=== PATIENT | female | born 1985 | race Caucasian/White ===

== ENCOUNTER 2020-10-25 23:11 | Emergency (ER) | payer BC ==
[2020-10-25] MEDS ORDERED: ONDANSETRON 4 MG/2 ML VIAL IVP STA (23:23)
[2020-10-25] MEDS ORDERED: ACETAMINOPHEN TAB 500 MG TAB PO STA (23:23)
[2020-10-25] MEDS ORDERED: HYDROmorphone 0.5 MG/0.5 ML SYRINGE IVP STA (23:23)
[2020-10-25] MEDS ORDERED: KETOROLAC 15 MG/ML 1 ML VIAL IVP STA (23:23)
[2020-10-25] MEDS ORDERED: SODIUM CHLORIDE 0.9% 1,000 ML IV STA (23:23)
--- NOTE | 2020-10-25 23:29 | ED ---
Abdominal Pain HPI - General Chief Complaint: Abdominal Pain Stated Complaint: Abd Pain Time Seen by Provider: 10/25/20 23:18 Source: patient Mode of arrival: ambulatory Limitations: no limitations - History of Present Illness Initial Comments: 35 year-old female patient presents to the emergency department for evaluation of left flank pain that started around 1500 this afternoon. States that pain has been persistent since. Reports nausea without vomiting. Denies constipation or diarrhea. Denies any hematuria, dysuria, urinary urgency, or frequency. Denies any known fever but states she is chilled and feels like she is going to pass out. Denies abnormal vaginal discharge or concern for STD. States she is on her period and does not think she is . Has history of kidney stone, current symptoms feel similar. She has had appendectomy and lithotripsy in the past. No other abdominal surgeries. Patient denies any recent rash, cough, shortness of breath, chest pain, numbness, tingling, dizziness, weakness, headache, visual changes, or any other complaints. - Related Data Previous Rx's Medication Instructions Recorded HYDROcodone/APAP 7.5-325MG [[place] 1 each PO Q6HR PRN #30 tab 08/15/14 7.5-325] Naproxen [Naprosyn] 500 mg PO Q12HR #60 tab 08/15/14 Ondansetron Odt [Zofran Odt] 4 mg PO Q8HR PRN #30 tab 08/15/14 Tamsulosin HCl [Flomax] 0.4 mg PO DAILY #30 cap 08/15/14 Cephalexin [Keflex] 500 mg PO Q6H #56 cap 10/26/20 Fluconazole [Diflucan] 150 mg PO ONCE #2 tab 10/26/20 Ibuprofen [Motrin] 600 mg PO Q8HR PRN #30 tab 10/26/20 Allergies Allergy/AdvReac Type Severity Reaction Status Date / Time Sulfa (Sulfonamide Allergy Rash/Hives Verified 10/25/20 23:16 Antibiotics) Review of Systems ROS Statement: Those systems with pertinent positive or pertinent negative responses have been documented in the HPI. ROS Other: All systems not noted in ROS Statement are negative. Past Medical History Additional Past Medical History / Comment(s): KIDNEY STONES, History of Any Multi-Drug Resistant Organisms: None Reported Past Surgical History: Appendectomy Additional Past Surgical History / Comment(s): hx: kidney stones Past Psychological History: Anxiety Smoking Status: Current every day smoker Past Alcohol Use History: None Reported Past Drug Use History: Marijuana General Exam Limitations: no limitations General appearance: alert, in no apparent distress, other (Social well-devel oped, well-nourished adult female patient in no acute distress. Vital signs upon presentation temperature 100.3F oral, pulse 100, respirations 18, blood pressure 126/73, pulse ox 100% on room air.) Eye exam: Present: normal appearance, PERRL, EOMI. Absent: scleral icterus, conjunctival injection, periorbital swelling ENT exam: Present: normal exam, normal oropharynx, mucous membranes moist Respiratory exam: Present: normal lung sounds bilaterally. Absent: respiratory distress, wheezes, rales, rhonchi, stridor Cardiovascular Exam: Present: regular rate, normal rhythm, normal heart sounds. Absent: systolic murmur, diastolic murmur, rubs, gallop, clicks GI/Abdominal exam: Present: soft, tenderness (Left lateral), normal bowel sounds. Absent: distended, guarding, rebound, rigid Back exam: Present: normal inspection, CVA tenderness (L). Absent: CVA tenderness (R) Neurological exam: Present: alert, oriented X3, CN II-XII intact Psychiatric exam: Present: normal affect, normal mood Skin exam: Present: warm, dry, intact, normal color. Absent: rash Course Vital Signs 10/25/20 10/26/20 23:12 00:48 Temperature 100.3 F H 98.6 F Pulse Rate 100 71 Respiratory 18 20 Rate Blood Pressure 126/73 112/84 O2 Sat by Pulse 100 99 Oximetry Medical Decision Making - Medical Decision Making 35-year-old female patient presents to the emergency department today for evaluation of left flank pain that started earlier today. Physical examination did reveal left CVA tenderness. Mild left-sided abdominal tenderness. She does have a history of kidney stones. Labs reviewed and did reveal white blood cell count at 16.1, neutrophils 13.0. Kidney function is normal. Urinalysis did show trace ketones, moderate blood, positive nitrite, moderate leukocyte esterase, 19 red blood cells, 96 white blood cells, many bacteria, many mucus. CT abdomen pelvis shows no evidence for kidney stone or hydronephrosis. She did have elevated temperature upon arrival 100.3. She is not . She was given 1 g of Rocephin IV. She is not vomiting, has no comorbidities, no immunosupression. She'll be started on Keflex. We will give prescription for Diflucan. She is instructed to follow-up with her primary care physician for recheck in 1-2 days. Return parameters discussed in detail. She verbalizes understanding and agrees this plan. Case discussed with my attending Dr. Henriquez. - Lab Data Result diagrams: 10/25/20 23:39 10/25/20 23:39 Lab Results 10/25/20 10/25/20 10/25/20 Range/Units 23:39 23:39 23:39 WBC 16.1 H (3.8-10.6) k/uL RBC 4.39 (3.80-5.40) m/uL Hgb 14.2 (11.4-16.0) gm/dL Hct 40.2 (34.0-46.0) % MCV 91.7 (80.0-100.0) fL MCH 32.4 (25.0-35.0) pg MCHC 35.3 (31.0-37.0) g/dL RDW 12.0 (11.5-15.5) % Plt Count 238 (150-450) k/uL MPV 7.3 Neutrophils % 81 % Lymphocytes % 10 % Monocytes % 7 % Eosinophils % 1 % Basophils % 0 % Neutrophils # 13.0 H (1.3-7.7) k/uL Lymphocytes # 1.6 (1.0-4.8) k/uL Monocytes # 1.2 H (0-1.0) k/uL Eosinophils # 0.1 (0-0.7) k/uL Basophils # 0.0 (0-0.2) k/uL Sodium (137-145) mmol/L Potassium (3.5-5.1) mmol/L Chloride (98-107) mmol/L Carbon Dioxide (22-30) mmol/L Anion Gap mmol/L BUN (7-17) mg/dL Creatinine (0.52-1.04) mg/dL Est GFR (CKD-EPI)AfAm (>60 ml/min/1.73 sqM) Est GFR (CKD-EPI)NonAf (>60 ml/min/1.73 sqM) Glucose (74-99) mg/dL Plasma Lactic Acid Kaleb (0.7-2.0) mmol/L Calcium (8.4-10.2) mg/dL Total Bilirubin (0.2-1.3) mg/dL AST (14-36) U/L ALT (4-34) U/L Alkaline Phosphatase (38-126) U/L Total Protein (6.3-8.2) g/dL Albumin (3.5-5.0) g/dL Lipase (23-300) U/L Urine Color Yellow Urine Appearance Cloudy H (Clear) Urine pH 6.0 (5.0-8.0) Ur Specific [place] 1.029 (1.001-1.035) Urine Protein 1+ H (Negative) Urine Glucose (UA) Negative (Negative) Urine Ketones Trace H (Negative) Urine Blood Moderate H (Negative) Urine Nitrite Positive H (Negative) Urine Bilirubin Negative (Negative) Urine Urobilinogen <2.0 (<2.0) mg/dL Ur Leukocyte Esterase Moderate H (Negative) Urine RBC 19 H (0-5) /hpf Urine WBC 96 H (0-5) /hpf Ur Squamous Epith Cells 1 (0-4) /hpf Urine Bacteria Many H (None) /hpf Hyaline Casts 1 (0-2) /lpf Urine Mucus Many H (None) /hpf Urine HCG, Qual Not Detected (Not Detectd) 10/25/20 10/25/20 Range/Units 23:39 23:39 WBC (3.8-10.6) k/uL RBC (3.80-5.40) m/uL Hgb (11.4-16.0) gm/dL Hct (34.0-46.0) % MCV (80.0-100.0) fL MCH (25.0-35.0) pg MCHC (31.0-37.0) g/dL RDW (11.5-15.5) % Plt Count (150-450) k/uL MPV Neutrophils % % Lymphocytes % % Monocytes % % Eosinophils % % Basophils % % Neutrophils # (1.3-7.7) k/uL Lymphocytes # (1.0-4.8) k/uL Monocytes # (0-1.0) k/uL Eosinophils # (0-0.7) k/uL Basophils # (0-0.2) k/uL Sodium 136 L (137-145) mmol/L Potassium 3.7 (3.5-5.1) mmol/L Chloride 106 (98-107) mmol/L Carbon Dioxide 21 L (22-30) mmol/L Anion Gap 9 mmol/L BUN 14 (7-17) mg/dL Creatinine 0.77 (0.52-1.04) mg/dL Est GFR (CKD-EPI)AfAm >90 (>60 ml/min/1.73 sqM) Est GFR (CKD-EPI)NonAf >90 (>60 ml/min/1.73 sqM) Glucose 107 H (74-99) mg/dL Plasma Lactic Acid Kaleb 1.0 (0.7-2.0) mmol/L Calcium 9.3 (8.4-10.2) mg/dL Total Bilirubin 0.5 (0.2-1.3) mg/dL AST 17 (14-36) U/L ALT 9 (4-34) U/L Alkaline Phosphatase 48 (38-126) U/L Total Protein 6.4 (6.3-8.2) g/dL Albumin 4.2 (3.5-5.0) g/dL Lipase 38 (23-300) U/L Urine Color Urine Appearance (Clear) Urine pH (5.0-8.0) Ur Specific [place] (1.001-1.035) Urine Protein (Negative) Urine Glucose (UA) (Negative) Urine Ketones (Negative) Urine Blood (Negative) Urine Nitrite (Negative) Urine Bilirubin (Negative) Urine Urobilinogen (<2.0) mg/dL Ur Leukocyte Esterase (Negative) Urine RBC (0-5) /hpf Urine WBC (0-5) /hpf Ur Squamous Epith Cells (0-4) /hpf Urine Bacteria (None) /hpf Hyaline Casts (0-2) /lpf Urine Mucus (None) /hpf Urine HCG, Qual (Not Detectd) - Radiology Data Radiology results: report reviewed, image reviewed CT abdomen and pelvis without contrast was obtained. Report was reviewed in its entirety. Impression by Dr. Durand shows some low density free fluid in the pelvis. She is having persistent right ovary. Free fluid also present on the old exam. Multiple renal calcifications in the palpable could relate multiple renal calculi or medullary sponge kidney. No renal obstruction. Disposition Clinical Impression: Pyelonephritis Disposition: HOME SELF-CARE Condition: Good Instructions (If sedation given, give patient instructions): Kidney Infection (ED) Additional Instructions: Increase fluids. Complete antibiotic prescription in full. Follow-up with your primary care physician for recheck in 1-2 days. Return to the emergency department immediately for any new, worsening, or concerning symptoms Prescriptions: Fluconazole [Diflucan] 150 mg PO ONCE #2 tab Cephalexin [Keflex] 500 mg PO Q6H #56 cap Ibuprofen [Motrin] 600 mg PO Q8HR PRN #30 tab PRN Reason: Pain Is patient prescribed a controlled substance at d/c from ED?: No Referrals: Sandra Trejo MD [Primary Care Provider] - 1-2 days Time of Disposition: 01:02
[2020-10-26 00:08] LABS: Appearance,Urine Cloudy (Clear); Bacteria,Urine Many /hpf; Bilirubin,Urine Negative (Negative); Blood,Urine Moderate (Negative); Color,Urine Yellow; Glucose,Urine (UA) Negative (Negative); Hyaline Casts,Urine 1 /lpf (0-2); Ketones,Urine Trace (Negative); Leukocyte Esterase,Urine Moderate (Negative); Mucus,Urine Many /hpf; Nitrite,Urine Positive (Negative); Protein,Urine 1+ (Negative); RBC,Urine 19 /hpf (0-5); Specific Gravity,Urine 1.029 (1.001-1.035); Squamous Epithelial Cell,Urine 1 /hpf (0-4); Urobilinogen,Urine <2.0 mg/dL (<2.0); WBC,Urine 96 /hpf (0-5)
[2020-10-26 00:10] LABS: Basophils % (A) 0 %; Eosinophils # (A) 0.1 k/uL (0-0.7); Eosinophils % (A) 1 %; HCT 40.2 % (34.0-46.0); HGB 14.2 gm/dL (11.4-16.0); Lymphocytes # (A) 1.6 k/uL (1.0-4.8); Lymphocytes % (A) 10 %; MCH 32.4 pg (25.0-35.0); MCHC 35.3 g/dL (31.0-37.0); MCV 91.7 fL (80.0-100.0); Mean Platelet Volume 7.3; Monocytes # (A) 1.2 k/uL (0-1.0); Monocytes % (A) 7 %; Neutrophils % (A) 81 %; Platelet Count 238 k/uL (150-450); RBC 4.39 m/uL (3.80-5.40); WBC 16.1 k/uL (3.8-10.6)
[2020-10-26 00:14] LABS: ALT 9 U/L (4-34); AST 17 U/L (14-36); African American GFR (CKD) >90 (>60 ml/min/1.73 sqM); Albumin 4.2 g/dL (3.5-5.0); Alkaline Phosphatase 48 U/L (38-126); Anion Gap 9 mmol/L; Blood Urea Nitrogen 14 mg/dL (7-17); Calcium 9.3 mg/dL (8.4-10.2); Carbon Dioxide 21 mmol/L (22-30); Chloride 106 mmol/L (98-107); Glucose 107 mg/dL (74-99); Lipase 38 U/L (23-300); Non-African American GFR(CKD) >90 (>60 ml/min/1.73 sqM); Potassium 3.7 mmol/L (3.5-5.1); Sodium 136 mmol/L (137-145); Total Bilirubin 0.5 mg/dL (0.2-1.3); Total Protein 6.4 g/dL (6.3-8.2)
[2020-10-26] MEDS ORDERED: cefTRIAXone IN SWFI 1,000 MG/10 ML SYRINGE IVP STA (00:22)
[2020-10-26 00:51] VITALS: BP 112/84; PULSE 71; RESP 20; TEMP 98.6
--- NOTE | 2020-10-26 00:53 | CT ---
EXAMINATION TYPE: CT abdomen pelvis wo con DATE OF EXAM: 10/26/2020 COMPARISON: 07/08/2014 HISTORY: left flank pain CT DLP: 204.10 mGycm Automated exposure control for dose reduction was used. Images obtained from the diaphragm to the floor the pelvis with no contrast. The lung bases are clear. There is no pleural effusion. Heart size is normal. There is no pericardial effusion. Liver spleen stomach pancreas gallbladder appear normal. The bile ducts are not dilated. There is no adrenal mass. Kidneys have normal size. There is calcification in the renal papilla. This could relate to medullary sponge kidney. There is no hydronephrosis. Ureters are not dilated. There is no retroperitoneal adenopathy. There are clips apparently from appendectomy. Bladder distends smoo thly. Uterus appears normal. There is small amount of free fluid in the cul-de-sac. There is no evide nce of a pelvic mass. Lumbar vertebra have normal alignment. Disc spaces are normal. Posterior elements are intact. The bon y pelvis is intact. The hip joints are intact. There is no mesenteric edema. There is no ascites or free air. There is no bowel obstruction. IMPRESSION: There is some low density free fluid in the pelvis. There is 2 cm cyst on the right ovary. Free fluid also present on the old exam. Multiple renal calcifications in the papilla could relate to multiple renal calculi or and medullary sponge kidney. No renal obstruction.
== END 2020-10-26 01:19 | disposition home or self-care (01) ==
LOC: EC 23:11
DX: N12 Tubulo-interstitial nephritis, not specified as acute or chronic (principal); F17.200 Nicotine dependence, unspecified, uncomplicated; Z88.2 Allergy status to sulfonamides
CPT/HCPCS: 36415; 80053; 83605; 83690; 85025; 81001; 81025; 87040; 87086; 74176; 99284; 96374; 96375; 96361; J2405; J0696; J1885; J1170

== ENCOUNTER 2020-11-28 23:11 | Emergency (ER) | payer BC, OTHER ==
[2020-11-28 23:17] VITALS: BP 128/89; PULSE 73; RESP 19; TEMP 98.1
[2020-11-28] MEDS ORDERED: guaiFENesin-Coden 100-10MG/5ML 10 ML CUP PO STA (23:30)
--- NOTE | 2020-11-28 23:53 | ED ---
URI HPI - General Chief Complaint: Upper Respiratory Infection Stated Complaint: Cough, CORINNA Time Seen by Provider: 11/28/20 23:18 Source: patient Mode of arrival: ambulatory - History of Present Illness Initial Comments: 35-year-old female presents to emergency Department with a chief complaint of a cough. Patient reports yesterday she smoked moldy marijuana and ever since the n, she has developed a nonproductive cough. Reports the cough is worsening in the morning and night but slightly resolves throughout the day. Patient reports no associated URI-like symptoms except for a sore throat after having a coughing fits. She denies any associated chest pain or shortness of breath. She is a cigarette smoker. Denies any fevers or chills. - Related Data Previous Rx's Medication Instructions Recorded HYDROcodone/APAP 7.5-325MG [[place] 1 each PO Q6HR PRN #30 tab 08/15/14 7.5-325] Naproxen [Naprosyn] 500 mg PO Q12HR #60 tab 08/15/14 Ondansetron Odt [Zofran Odt] 4 mg PO Q8HR PRN #30 tab 08/15/14 Tamsulosin HCl [Flomax] 0.4 mg PO DAILY #30 cap 08/15/14 Cephalexin [Keflex] 500 mg PO Q6H #56 cap 10/26/20 Fluconazole [Diflucan] 150 mg PO ONCE #2 tab 10/26/20 Ibuprofen [Motrin] 600 mg PO Q8HR PRN #30 tab 10/26/20 Dextromethorphan Polistirex 30 mg PO BID #100 ml 11/28/20 [Delsym] Allergies Allergy/AdvReac Type Severity Reaction Status Date / Time Sulfa (Sulfonamide Allergy Rash/Hives Verified 11/28/20 23:17 Antibiotics) Review of Systems ROS Statement: Those systems with pertinent positive or pertinent negative responses have been documented in the HPI. ROS Other: All systems not noted in ROS Statement are negative. Past Medical History Additional Past Medical History / Comment(s): KIDNEY STONES, History of Any Multi-Drug Resistant Organisms: None Reported Past Surgical History: Appendectomy Additional Past Surgical History / Comment(s): hx: kidney stones Past Psychological History: Anxiety Smoking Status: Current every day smoker Past Alcohol Use History: None Reported Past Drug Use History: Marijuana General Exam Limitations: no limitations General appearance: alert, in no apparent distress Head exam: Present: atraumatic, normocephalic, normal inspection Eye exam: Present: normal appearance, PERRL, EOMI Pupils: Present: normal accommodation ENT exam: Present: normal exam, normal oropharynx, mucous membranes moist Neck exam: Present: normal inspection, full ROM. Absent: tenderness Respiratory exam: Present: normal lung sounds bilaterally. Absent: respiratory distress, wheezes, rales, rhonchi, stridor Cardiovascular Exam: Present: regular rate, normal rhythm, normal heart sounds GI/Abdominal exam: Present: soft. Absent: distended, tenderness Extremities exam: Present: normal inspection, full ROM, normal capillary refill. Absent: tenderness Back exam: Present: normal inspection, full ROM. Absent: tenderness, CVA tenderness (R), CVA tenderness (L) Neurological exam: Present: alert, oriented X3 Psychiatric exam: Present: normal affect, normal mood Skin exam: Present: warm, dry, intact, normal color Course Vital Signs 11/28/20 23:13 Temperature 98.1 F Pulse Rate 73 Respiratory 19 Rate Blood Pressure 128/89 O2 Sat by Pulse 100 Oximetry Medical Decision Making - Medical Decision Making 35-year-old female presents to emergency Department with a chief complaint of a cough. On physical examination, no signs of respiratory distress. Patient is able to complete sentences without any difficulty. Chest x-rays and a [place]. She was given Robitussin before meals here. She'll be discharged with Delsym prescription. Return parameters were thoroughly discussed with patient is understanding and agreeable. Case discussed with physician. Disposition Clinical Impression: Cough Disposition: HOME SELF-CARE Condition: Stable Instructions (If sedation given, give patient instructions): Acute Cough (ED) Additional Instructions: Please return to the Emergency Department if symptoms worsen or any other concerns. Prescriptions: Dextromethorphan Polistirex [Delsym] 30 mg PO BID #100 ml Is patient prescribed a controlled substance at d/c from ED?: No Referrals: Sandra Trejo MD [Primary Care Provider] - 1-2 days Time of Disposition: 23:59
--- NOTE | 2020-11-28 23:53 | XR ---
EXAMINATION TYPE: XR chest 2V DATE OF EXAM: 11/28/2020 COMPARISON: NONE HISTORY: Cough TECHNIQUE: 2 views FINDINGS: Heart and mediastinum are normal. Lungs are clear. Diaphragm is normal. Bony thorax is inta ct. IMPRESSION: Normal chest.
== END 2020-11-29 00:20 | disposition home or self-care (01) ==
LOC: EC 23:11
DX: R05 Cough (principal); R06.00 Dyspnea, unspecified; F17.210 Nicotine dependence, cigarettes, uncomplicated; Z88.2 Allergy status to sulfonamides
CPT/HCPCS: 71046; 99284

== ENCOUNTER 2021-05-13 14:25 | Emergency (ER) | payer BC, OTHER ==
[2021-05-13 15:02] VITALS: BP 128/78; PULSE 78; RESP 16; TEMP 97.9
--- NOTE | 2021-05-13 15:22 | XR ---
EXAMINATION TYPE: XR hand complete RT DATE OF EXAM: 05/13/2021 CLINICAL HISTORY: Pain after injury. TECHNIQUE: Frontal, lateral and oblique images of the right hand are obtained. COMPARISON: None. FINDINGS: There is acute comminuted slightly displaced fracture through the distal metadiaphysis fif th metacarpal. There is abnormal radial and palmar angulation of distal fracture fragments. Joint spa robby are maintained. Overlying soft tissue is unremarkable. IMPRESSION: Acute comminuted slightly displaced fracture distal metadiaphysis fifth metacarpal. (Boxe r type fracture).
[2021-05-13] MEDS ORDERED: ACET/COD 300 MG/30 MG STARTER PACK 6 TAB BTL PO STA (15:45)
[2021-05-13] MEDS ORDERED: DIPH,PERTUS(ACELL)TETVAC-LF 0.5 ML VIAL IM ONE (15:45)
--- NOTE | 2021-05-13 15:46 | ED ---
Upper Extremity HPI - General Chief Complaint: Extremity Injury, Upper Stated Complaint: R hand injury Time Seen by Provider: 05/13/21 15:25 Source: patient, old records reviewed Mode of arrival: ambulatory Limitations: no limitations - History of Present Illness Initial Comments: 35-year-old female presented to the emergency Department with chief complaint right hand pain. Patient states she punched a wall states that she has injury, pain to the right hand she is right-hand dominant no prior fractures. Patient has a small abrasion unsure when her last tetanus was. Patient offers no complaints. - Related Data Previous Rx's Medication Instructions Recorded HYDROcodone/APAP 7.5-325MG [[place] 1 each PO Q6HR PRN #30 tab 08/15/14 7.5-325] Naproxen [Naprosyn] 500 mg PO Q12HR #60 tab 08/15/14 Ondansetron Odt [Zofran Odt] 4 mg PO Q8HR PRN #30 tab 08/15/14 Tamsulosin HCl [Flomax] 0.4 mg PO DAILY #30 cap 08/15/14 Cephalexin [Keflex] 500 mg PO Q6H #56 cap 10/26/20 Fluconazole [Diflucan] 150 mg PO ONCE #2 tab 10/26/20 Ibuprofen [Motrin] 600 mg PO Q8HR PRN #30 tab 10/26/20 Dextromethorphan Polistirex 30 mg PO BID #100 ml 11/28/20 [Delsym] Allergies Allergy/AdvReac Type Severity Reaction Status Date / Time Sulfa (Sulfonamide Allergy Rash/Hives Verified 05/13/21 15:02 Antibiotics) Review of Systems ROS Statement: Those systems with pertinent positive or pertinent negative responses have been documented in the HPI. ROS Other: All systems not noted in ROS Statement are negative. Past Medical History Additional Past Medical History / Comment(s): KIDNEY STONES, History of Any Multi-Drug Resistant Organisms: None Reported Past Surgical History: Appendectomy Additional Past Surgical History / Comment(s): hx: kidney stones Past Psychological History: Anxiety Smoking Status: Current every day smoker Past Alcohol Use History: None Reported Past Drug Use History: Marijuana General Exam Limitations: no limitations General appearance: alert, in no apparent distress Head exam: Present: atraumatic, normocephalic, normal inspection Respiratory exam: Present: normal lung sounds bilaterally. Absent: respiratory distress, wheezes, rales, rhonchi, stridor Cardiovascular Exam: Present: regular rate, normal rhythm, normal heart sounds. Absent: systolic murmur, diastolic murmur, rubs, gallop, clicks Extremities exam: Present: other (Right hand there is small abrasion over the fifth metacarpal region. This is a very superficial wound, it was thoroughly cleaned patient does have moderate swelling, deformity to that area.) Skin exam: Present: warm, dry, intact, normal color. Absent: rash Course Vital Signs 05/13/21 14:59 Temperature 97.9 F Pulse Rate 78 Respiratory 16 Rate Blood Pressure 128/78 O2 Sat by Pulse 98 Oximetry Procedures - Orthopedic Splinting/Casting Injury #1 Side: right Upper Extremity Injury Location: short arm, hand Upper Extremity Immobilizer: ulnar gutter, synthetic pre-padded splint Medical Decision Making - Medical Decision Making Patient's and was cleaned there is a superficial abrasion tetanus is updated. Patient was in place in a splint will follow-up with orthopedics. Return parameters were discussed. Disposition Clinical Impression: Nondisplaced fracture of fifth right metatarsal bone Disposition: HOME SELF-CARE Condition: Stable Instructions (If sedation given, give patient instructions): Hand Fracture (ED) Additional Instructions: Please return to the Emergency Department if symptoms worsen or any other concerns. Is patient prescribed a controlled substance at d/c from ED?: No Referrals: Sandra Trejo MD [Primary Care Provider] - 1-2 days Raman Mercado MD [STAFF PHYSICIAN] - 1-2 days Time of Disposition: 15:46
== END 2021-05-13 16:33 | disposition home or self-care (01) ==
LOC: EC 14:25
DX: S62.396A Other fracture of fifth metacarpal bone, right hand, initial encounter for closed fracture (principal); F17.200 Nicotine dependence, unspecified, uncomplicated; Z23 Encounter for immunization; Z88.2 Allergy status to sulfonamides; W22.01XA Walked into wall, initial encounter
CPT/HCPCS: 29125; 90471; 90715; 99283

== ENCOUNTER → 2021-05-25 | Day surgery (SDC) | payer BC, OTHER ==
[2021-05-18 15:13] VITALS: BMI 17.2
--- NOTE | 2021-05-24 11:26 | HP ---
HISTORY AND PHYSICAL CHIEF COMPLAINT: Right hand pain. HISTORY OF PRESENT ILLNESS: This patient is a 35-year-old [id number] who presents with right hand pain after an injury on 05/13/2021. She punched a wall at home. Initially she was seen in the emergency room and was placed in a splint. She denies previous injury. PAST MEDICAL HISTORY: Significant for kidney stones. PAST SURGICAL HISTORY: Significant for appendectomy and tonsillectomy. CURRENT MEDICATIONS: None. ALLERGIES: SHE DENIES DRUG ALLERGIES. FAMILY HISTORY: Negative. SOCIAL HISTORY: Significant for current tobacco use. REVIEW OF SYSTEMS: Sixteen-point review of systems otherwise reviewed and is noncontributory. PHYSICAL EXAMINATION: On examination, the patient is approximately 5 feet 6 inches, 110 pounds of mesomorphic habitus. HEENT exam is nonfocal. Neck is supple. She is nontender about the right shoulder, elbow and wrist. On examination of her right hand, she is tender about the fifth metacarpal neck and distal shaft. Skin is intact. Moderate swelling is noted. There is limited range of motion. No rotational abnormalities noted. Her distal neurovascular exam appears intact in the digits. AP, lateral and oblique views of the right hand obtained in the office show a comminuted angulated fifth metacarpal distal shaft fracture. IMPRESSION: Right fifth metacarpal distal shaft/neck fracture with comminution and displacement. RECOMMENDATIONS: I talked to the patient at length regarding her condition and treatment options. At this point, with the initial degree of displacement, angulation and comminution, I recommended proceeding with attempted closed reduction and pinning. Risks and benefits were discussed at length in layman's terms. We will likely perform that as an outpatient procedure. MMODL / IJN: [id number] /
[~2021-05-25] MED LIST: DEXAMETHASONE SOD PHOSPHATE 4 MG/ML 1 ML VIAL IV ONE; HYDROmorphone 0.5 MG/0.5 ML SYRINGE IVP ONE; HYDROmorphone 0.5 MG/0.5 ML SYRINGE IVP PRN; KETAMINE 10 MG/ML 20 ML VIAL ONE; LACTATED RINGERS 1,000 ML IV SCH; LIDOCAINE 1% (10MG/ML) FOR IV START INTRADERMA PRN; LIDOCAINE 1% INJ 10MG/ML (20 ML MDV) ONE; MIDAZOLAM 2 MG/2 ML VIAL IV PRN; MIDAZOLAM 2 MG/2 ML VIAL ONE; ONDANSETRON 4 MG/2 ML VIAL IVP ONE; PROPOFOL 10 MG/ML 20 ML VIAL IV ONE; fentaNYL (PF) 50 MCG/ML 2 ML AMP ONE
[2021-05-25 11:30] VITALS: TEMP 98
--- NOTE | 2021-05-25 13:29 | P.OP ---
Date of Procedure: 05/25/21 Preoperative Diagnosis: Displaced right fifth metacarpal neck fracture Postoperative Diagnosis: Same Procedure(s) Performed: Closed reduction with percutaneous pinning right fifth metacarpal neck fracture Implants: 0.045 inch K wire 3 Anesthesia: ROSALINDA Surgeon: Raman Mercado Scrap Handler #1: Sinan Mendoza IV fluids (ml): 1 Pathology: none sent Condition: stable Disposition: PACU Indications for Procedure: The patient's a 35-year-old female who presents after injuring her right hand recently with a displaced right fifth metacarpal neck fracture. A discussion of the risks and benefits of operative intervention versus continued conservative measures was made with patient. She opted to proceed with surgery. Operative risks to include infection, neurovascular injury, development of blood clots, possible development of nonunion/malunion, and possible need for subsequent procedures was discussed. Informed consent was obtained. Operative Findings: As below Description of Procedure: The patient was brought to the operating room, and after induction of general anesthesia the right upper extremity was prepped and draped in normal fashion. The fracture was reduced with traction and manipulation. This was verified with fluoroscopy. 3 K wires measuring 0.045 inch in diameter were placed spanning from the fifth metacarpal to the fourth. 2 were placed distal to the fracture line one placed proximal. Final fluoroscopic views to include AP, oblique and lateral views showed adequate reduction of the fracture and placement of the implants. The pins were clipped below the level of skin. A sterile dressing was applied in addition to an ulnar gutter splint with the hand in functional position. I did check to make sure there was no rotational abnormality or overlap of the digits. She was then awoken from general anesthesia and transferred to recovery room in good condition. Blood loss was estimated at 1 mL. No complications were incurred.
--- NOTE | 2021-05-25 13:38 | XR ---
EXAMINATION TYPE: XR finger RT, [place] guidance operating room DATE OF EXAM: 05/25/2021 CLINICAL HISTORY: Right finger fracture. TECHNIQUE: Fluoroscopy. Intraoperative 3 views right finger. COMPARISON: Right hand x-ray May 13, 2021. FINDINGS: Fluoroscopic guidance was provided during external reduction internal fixation procedure p erformed by Dr. Mercado. A total of 21 seconds of fluoroscopic time was utilized during the procedure and 4 spot images was acquired. Images acquired show placement of 3 K wires through comminuted slightly displaced fracture distal met adiaphysis fifth metacarpal. IMPRESSION: As Above.
[2021-05-25 14:42] VITALS: BP 155/84; PULSE 61; RESP 17
== END | disposition home or self-care (01) ==
LOC: OR 11:05
PROVIDERS: ATTEND Orthopaedic Surgery
DX: S62.336A Displaced fracture of neck of fifth metacarpal bone, right hand, initial encounter for closed fracture (principal); F17.200 Nicotine dependence, unspecified, uncomplicated
CPT/HCPCS: 26615; 81025; 73140; C1713; J2250; J1100; J2405; J0690; J2001; J3010; J2704; J1170

== ENCOUNTER 2021-10-17 21:46 | Emergency (ER) | payer BC, OTHER ==
[2021-10-17 21:57] VITALS: BP 104/71; PULSE 81; RESP 19; TEMP 98.1
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
[2021-10-17 23:14] LABS: Appearance,Urine Clear (Clear); Bilirubin,Urine Negative (Negative); Blood,Urine Small (Negative); Color,Urine Yellow; Glucose,Urine (UA) Negative (Negative); Ketones,Urine Negative (Negative); Leukocyte Esterase,Urine Negative (Negative); Mucus,Urine Few /hpf; Nitrite,Urine Negative (Negative); Protein,Urine Negative (Negative); RBC,Urine 4 /hpf (0-5); Specific Gravity,Urine 1.013 (1.001-1.035); Squamous Epithelial Cell,Urine 1 /hpf (0-4); Urobilinogen,Urine <2.0 mg/dL (<2.0); WBC,Urine 2 /hpf (0-5)
[2021-10-17 23:36] LABS: Amphetamine Screen,Urine Not Detected (NotDetected); Barbiturate Screen,Urine Not Detected (NotDetected); Benzodiazepines Screen,Urine Not Detected (NotDetected); Cocaine Screen,Urine Not Detected (NotDetected); Methadone Screen, Urine Not Detected (NotDetected); Opiate Screen,Urine Not Detected (NotDetected); Oxycodone Screen, Urine Not Detected (NotDetected); Phencyclidine Screen,Urine Not Detected (NotDetected); Tricyclic Antidepressant,Urine Not Detected (NotDetected); Urn Cannabinoid Scrn Detected (NotDetected)
== END 2021-10-18 02:43 | disposition home or self-care (01) ==
LOC: EC 21:46
DX: F10.129 Alcohol abuse with intoxication, unspecified (principal); F32.A Depression, unspecified; Z88.2 Allergy status to sulfonamides; F17.200 Nicotine dependence, unspecified, uncomplicated
CPT/HCPCS: 80306; 81001; 81025; 82075; 99284